=== PATIENT | male | born 1970 | race Caucasian/White ===

== ENCOUNTER → 2021-03-01 | Outpatient (CLI) | payer BC ==
[2021-03-01 18:21] LABS: Basophils # (A) 0.05 X 10*3/uL (0.00-0.10); Basophils % (A) 0.7 %; Eosinophils # (A) 0.11 X 10*3/uL (0.04-0.35); Eosinophils % (A) 1.6 %; HCT 46.4 % (39.6-50.0); HGB 14.8 g/dL (13.0-17.0); Lymphocytes # (A) 2.48 X 10*3/uL (0.90-5.00); Lymphocytes % (A) 35.3 %; MCH 29.7 pg (27.0-32.0); MCHC 31.9 g/dL (32.0-37.0); Mean Platelet Volume 9.6 fL (9.5-12.2); Monocytes # (A) 0.55 X 10*3/uL (0.20-1.00); Monocytes % (A) 7.8 %; Neutrophils # (A) 3.82 X 10*3/uL (1.80-7.70); Neutrophils % (A) 54.3 %; Platelet Count 209 X 10*3/uL (140-440); RBC 4.99 X 10*6/uL (4.40-5.60); RDW 14.8 % (11.5-14.5); WBC 7.03 X 10*3/uL (4.50-10.00)
[2021-03-01 22:07] LABS: African American GFR (CKD) 117.8 (60.0-200.0); Albumin 4.9 g/dL (3.8-4.9); Anion Gap 16.4 mmol/L (10.00-18.00); BUN/Creat Ratio 10.35 Ratio (12.00-20.00); Blood Urea Nitrogen 8.5 mg/dL (9.0-27.0); Calcium 10.2 mg/dL (8.7-10.3); Carbon Dioxide 24.8 mmol/L (20.0-27.5); Globulin 2.4 g/dL (1.6-3.3); Non-African American GFR(CKD) 101.7 (60.0-200.0); Potassium 4.6 mmol/L (3.5-5.5); Total Bilirubin 0.5 mg/dL (0.30-1.20); Total Protein 7.3 g/dL (6.2-8.2)
== END | disposition home or self-care (01) ==
LOC: LABWHC1 13:05
PROVIDERS: ATTEND Physician Assistant
DX: R07.9 Chest pain, unspecified (principal)
CPT/HCPCS: 36415; 80053; 82550; 84443; 84484; 85025; 85379

== ENCOUNTER → 2021-03-01 | Outpatient (CLI) | payer BC ==
--- NOTE | 2021-03-01 10:31 | XR ---
EXAMINATION TYPE: XR chest 2V DATE OF EXAM: 03/01/2021 COMPARISON: None INDICATION: Chest pain TECHNIQUE: Frontal and lateral views of the chest are obtained. FINDINGS: The heart size is normal. The pulmonary vasculature is normal. The lungs are clear. IMPRESSION: 1. No acute pulmonary process.
== END | disposition home or self-care (01) ==
LOC: RADXRYALE 10:11
PROVIDERS: ATTEND Physician Assistant
DX: R07.9 Chest pain, unspecified (principal)
CPT/HCPCS: 71046

== ENCOUNTER → 2023-08-29 | Outpatient (CLI) | payer BC ==
--- NOTE | 2023-08-29 12:25 | XR ---
EXAMINATION TYPE: XR thoracic spine 3 views complete DATE OF EXAM: 08/29/2023 Comparison: None Clinical History: 52-year-old male [id number] THOR PAIN Findings: There appear to be 13 rib-bearing thoracic vertebral bodies. All pedicles are visualized. Mild degene rative disc disease mid to lower thoracic spine. Vertebral body heights are preserved and alignment i s maintained. Impression: 1. Mild degenerative disc disease mid to lower thoracic spine. 2. No vertebral compression collapse or malalignment seen. 3. Incidentally, we count 13 rib-bearing thoracic vertebral bodies. Clinically correlate.
== END | disposition home or self-care (01) ==
LOC: RADXRYALE 09:16
PROVIDERS: ATTEND Physician Assistant Medical
DX: M51.34 Other intervertebral disc degeneration, thoracic region (principal)
CPT/HCPCS: 72072

== ENCOUNTER → 2024-05-14 | Outpatient (CLI) | payer BC ==
--- NOTE | 2024-05-14 23:47 | XR ---
EXAMINATION TYPE: XR knee complete RT DATE OF EXAM: 05/14/2024 5:09 PM COMPARISON: 2016 contralateral side CLINICAL INDICATION: Male, 53 years old with history of [id number] RT KNEE PAIN; [facility], pain TECHNIQUE: XR knee complete RT 3 views submitted. FINDINGS: No evidence of any acute osseous pathology, soft tissue swelling, or joint effusion is no artur. Tricompartmental osteophyte formation involving the femoral condyles, tibial plateau and patella . Mild joint space narrowing. IMPRESSION: 1. No acute osseous pathology. 2. Mild tricompartmental osteoarthritic changes. 3. Quadriceps tendon enthesophyte on the patella. 4. Patellar tendon enthesophyte. [facility], , 05/14/2024 11:45 PM
== END | disposition home or self-care (01) ==
LOC: RADXRYALE 16:58
PROVIDERS: ATTEND Physician Assistant Medical
DX: M17.11 Unilateral primary osteoarthritis, right knee (principal); M76.891 Other specified enthesopathies of right lower limb, excluding foot